=== PATIENT | female | born 1975 | race Caucasian/White ===

== ENCOUNTER 2024-06-19 19:35 | Emergency (ER) | payer MEDICAID ==
[~2024-06-19] VITALS: Ht 162.6 cm; Wt 64.0 kg
[2024-06-19 19:37] VITALS: O2SAT 97
[2024-06-19] MEDS: MAGNESIUM/ALUMINUM HYDROXIDE/SIMETHICONE 30ML UDC PO STA (21:10)
[2024-06-19] MEDS: ONDANSETRON 4MG ODT PO STA (21:10)
[2024-06-19] MEDS: FAMOTIDINE 20MG TABLET PO ONE (21:10)
[2024-06-19 21:30] LABS: HEMATOCRIT. 47.9 % (36.0-48.0); HEMOGLOBIN. 16.3 g/dL (12.0-16.0); LYMPHOCYTES % 8.5 % (20.0-50.0); MEAN CORPUSCULAR HEMOGLOBIN 29.9 pg (28.0-32.0); MONOCYTES % 7.1 % (2.0-8.0); NEUTROPHILS % 84.4 % (40.0-76.0); PLATELET 423 x1000/uL (130-400); RED BLOOD CELL COUNT 5.45 mill/uL (4.2-5.4); RED CELL DISTRIBUTION WIDTH 13.8 % (11.6-14.6)
[2024-06-19 21:33] LABS: CHLORIDE 94 mEq/L (98-107); POTASSIUM 3.3 mEq/L (3.5-5.1); SODIUM 138 mEq/L (136-145)
[2024-06-19 21:34] LABS: CALCIUM 10.6 mg/dL (8.7-10.4); CARBON DIOXIDE 34 mEq/L (21-32)
[2024-06-19 21:39] LABS: ETHANOL BLOOD < 10 mg/dL (<10); GLUCOSE 153 mg/dL (70-105); UREA NITROGEN BLOOD 25 mg/dL (9-23)
[2024-06-20 02:58] VITALS: BP 130/82; PULSE 85; RESP 16; TEMP 36.50292; O2SAT 99
== END 2024-06-20 02:59 | disposition home or self-care (01) ==
LOC: ER 19:35
DX: K29.70 Gastritis, unspecified, without bleeding (principal); R11.2 Nausea with vomiting, unspecified
CPT/HCPCS: 80048; 80320; 83690; 85025; 36415; 99284; Q0162; G0480